=== PATIENT | male | born 1995 | race American Indian/Alaskan Native ===

== ENCOUNTER 2018-06-28 00:30 | Emergency (ER) | payer OTHER, MEDICAID ==
[2018-06-28 00:42] VITALS: BP 120/77
[2018-06-28] MEDS ORDERED: NACL 0.9% 1000 ML 1,000 ML IV ONE (00:45)
--- NOTE | 2018-06-28 00:51 | Emergency Department Report ---
ED Alcohol HPI - General Chief Complaint: Alcohol Stated Complaint: ETOH Time Seen by Provider: 06/28/18 00:44 Source: EMS Mode of arrival: Stretcher Limitations: Altered Mental Status, Other - History of Present Illness Initial Comments: Patient is 23 years old male with no significant past medical history. Patient brought to the emergency room via EMS after patient was found unresponsive by his parent outside his house. Patient with a strong smell of alcohol and obvious alcohol intoxication. Patient stated that he fell and hit his head. Patient denied any neck injury. MD Complaint: alcohol intoxication Last Drink: just [employer] Chronic Alcohol Use: No Recent Trauma: No Treatments Prior to Arrival: none - Related Data Previous Rx's Medication Instructions Recorded Last Taken Type Sulfamethoxazole/Trimethoprim 1 each PO BID #10 tablet 10/27/14 Unknown Rx [Bactrim Ds] Allergies Allergy/AdvReac Type Severity Reaction Status Date / Time No Known Allergies Allergy Unverified 10/27/14 00:59 ED Review of Systems ROS: Stated complaint: ETOH Other details as noted in HPI Comment: All other systems reviewed and negative Constitutional: denies: chills, fever Respiratory: denies: cough, orthopnea, shortness of breath, SOB with exertion, SOB at rest Cardiovascular: denies: chest pain, palpitations Gastrointestinal: denies: abdominal pain, nausea, vomiting Musculoskeletal: denies: back pain Neurological: denies: headache, weakness Psychiatric: denies: anxiety, depression, auditory hallucinations, visual hallucinations, homicidal thoughts, suicidal thoughts ED Past Medical Hx - Past Medical History Previous Medical History?: No Hx Psychiatric Treatment: Yes Additional medical history: Pt unable to verify at this time - Surgical History Additional Surgical History: unknown - Social History Smoking Status: Current Every Day Smoker Substance Use Type: Marijuana - Medications Home Medications: Home Medications Medication Instructions Recorded Confirmed Last Taken Type Sulfamethoxazole/Trimethoprim 1 each PO BID #10 tablet 10/27/14 Unknown Rx [Bactrim Ds] ED Physical Exam - General Limitations: Altered Mental Status, Other General appearance: alert, in no apparent distress, appears intoxicated - Head Head exam: Present: atraumatic, normocephalic, normal inspection - Eye Eye exam: Present: normal appearance, PERRL - ENT ENT exam: Present: normal exam, normal orophraynx, mucous membranes moist - Neck Neck exam: Present: normal inspection, full ROM. Absent: tenderness, meningismus, lymphadenopathy, thyromegaly - Respiratory Respiratory exam: Present: normal lung sounds bilaterally. Absent: respiratory distress, wheezes, rales, rhonchi, stridor, chest wall tenderness, accessory muscle use, decreased breath sounds, prolonged expiratory - Cardiovascular Cardiovascular Exam: Present: regular rate, normal rhythm, normal heart sounds - GI/Abdominal GI/Abdominal exam: Present: soft, normal bowel sounds. Absent: distended, te nderness, guarding, rebound, rigid, organomegaly, mass, bruit, pulsatile mass, hernia - Extremities Exam Extremities exam: Present: normal inspection, full ROM, normal capillary refill - Back Exam Back exam: Present: normal inspection, full ROM. Absent: tenderness, CVA tenderness (R), CVA tenderness (L), muscle spasm, paraspinal tenderness, vertebral tenderness - Neurological Exam Neurological exam: Present: alert, oriented X3, CN II-XII intact, reflexes normal - Skin Skin exam: Present: warm, intact, normal color ED Course Vital Signs 06/28/18 06/28/18 00:41 00:42 Pulse Rate 63 Respiratory 14 14 Rate Blood Pressure 120/77 [Left] O2 Sat by Pulse 99 99 Oximetry ED Medical Decision Making - Lab Data Result diagrams: 06/28/18 01:12 06/28/18 01:12 - Radiology Data Radiology results: report reviewed Referring Physician: JOJO REEVES Patient Name: VALERIE SINGH Date of : 1995 Sex: Male Report Date: 2018-06-28 Report Status: [place] [address] Cat Scan Report Signed Patient: VALERIE SINGH MR#: [id number] : 1995 Acct:[id number] Age/Sex: 23 / M ADM Date: 06/28/18 Loc: ED Attending Dr: Ordering Physician: JOJO REEVES Date of Service: 06/28/18 Procedure(s): CT head/brain wo con Accession Number(s): [id number] cc: JOJO REEVES PROCEDURE: CT HEAD/BRAIN WO CON TECHNIQUE: Routine axial imaging was obtained of the brain without IV contrast. HISTORY: head injury COMPARISONS: None FINDINGS: The ventricular system is appropriate in size and is symmetric. There is no evidence of acute stroke or hemorrhage. The sinuses reveal a 5 mm polyp in the left maxillary sinus. The mastoid air cells are well pneumatized. The calvarium appears intact. IMPRESSION: No acute intracranial process.. This document is electronically signed by Bethel Burgess MD., June 28 2018 02:22:03 AM ET Transcribed By: RB Dictated By: BETHEL BURGESS MD Electronically Authenticated By: BETHEL BURGESS MD Signed Date/Time: 06/28/18223 DD/ 6 TD/TT: 06/28/18206 - Medical Decision Making Patient is 23 years old male with no significant past medical history. Patient brought to the emergency room via EMS after patient was found unresponsive by his parent outside his house. Patient with a strong smell of alcohol and obvious alcohol intoxication. Patient stated that he fell and hit his head. Patient denied any neck injury. Patient now is awake, alert and oriented 3 in no acute distress. His labs reviewed and is negative except for slightly increased alcohol of 0.09. Patient will be discharged home with his family. I counseled patient about alcohol abuse and the dangers of intoxication. I advised the patient to follow up with his primary care physician in the next 2-3 days and to return to the ER if he develop any new symptoms. Critical care attestation.: If time is entered above; I have spent that time in minutes in the direct care of this critically ill patient, excluding procedure time. ED Disposition Clinical Impression: Alcohol intoxication Disposition: DC-01 TO HOME OR SELFCARE Is pt being admited?: No Condition: Stable Instructions: Alcohol Intoxication (ED) Referrals: PRIMARY CARE, [Primary Care Provider] - 3-5 Days
[2018-06-28 01:28] LABS: Amphetamine Screen,Urine PRESUMPTIVE NEGATIVE; Benzodiazepines Screen,Urine PRESUMPTIVE NEGATIVE; Cannabinoid Screen,Urine PRESUMPTIVE NEGATIVE; Cocaine Screen,Urine PRESUMPTIVE NEGATIVE; Methadone Screen,Urine PRESUMPTIVE NEGATIVE; Opiate Screen,Urine PRESUMPTIVE NEGATIVE
[2018-06-28 01:37] LABS: Eosinophils % (Auto) 2.2 % (0.0-4.3); Hematocrit 45.7 % (35.5-45.6); Hemoglobin 15.1 gm/dl (11.8-15.2); Lymphocytes % (Auto) 28.1 % (13.4-35.0); Mean Corpuscular HGB Conc 33 % (32-34); Mean Corpuscular Volume 83 fl (84-94); Monocytes % (Auto) 5.6 % (0.0-7.3); Platelet Count 234 K/mm3 (140-440); Red Cell Distribution Width 14.1 % (13.2-15.2)
[2018-06-28 01:38] LABS: Basophils # (Auto) 0.1 K/mm3 (0.0-0.1); Basophils % (Auto) 0.9 % (0.0-1.8); Eosinophils # (Auto) 0.2 K/mm3 (0.0-0.4); Lymphocytes # (Auto) 2.1 K/mm3 (1.2-5.4); Monocytes # (Auto) 0.4 K/mm3 (0.0-0.8)
[2018-06-28 02:03] LABS: Bilirubin,Urine Negative (Negative); Blood,Urine Negative (Negative); Color,Urine Yellow (Yellow)
[2018-06-28 02:04] LABS: Protein,Urine <15 mg/dL mg/dL (Negative); Urobilinogen,Urine 0.2 mg/dL (<2.0)
[2018-06-28 02:11] LABS: BUN/Creatinine Ratio 11; Blood Urea Nitrogen 9 mg/dL (9-20); Calcium 8.9 mg/dL (8.4-10.2); Hemolysis Index 4
--- NOTE | 2018-06-28 02:24 | Cat Scan Report ---
PROCEDURE: CT HEAD/BRAIN WO CON TECHNIQUE: Routine axial imaging was obtained of the brain without IV contrast. HISTORY: head injury COMPARISONS: None FINDINGS: The ventricular system is appropriate in size and is symmetric. There is no evidence of acute stroke or hemorrhage. The sinuses reveal a 5 mm polyp in the left maxillary sinus. The mastoid air cells are well pneumatized. The calvarium appears intact. IMPRESSION: No acute intracranial process.. This document is electronically signed by Bethel Burgess MD., June 28 2018 02:22:03 AM ET
== END 2018-06-28 03:03 | disposition home or self-care (01) ==
LOC: ED 00:30
DX: F10.120 Alcohol abuse with intoxication, uncomplicated (principal); F17.200 Nicotine dependence, unspecified, uncomplicated; R51 Headache
CPT/HCPCS: 36415; 70450; 80048; 80307; 81001; 85025; 99284; G0480; J7030; 80320

== ENCOUNTER 2018-07-01 21:50 | Emergency (ER) | payer OTHER, MEDICAID ==
--- NOTE | 2018-07-02 01:28 | Emergency Department Report ---
ED General Adult HPI - General Chief complaint: Headache Stated complaint: HEADACHE Source: patient Mode of arrival: Ambulatory Limitations: No Limitations - History of Present Illness Initial comments: Pt is a 23 yo male who presents to the ED with c/o an intermittent, left sided CRUZ for the last three days. The patient states he has felt light-headed but no syncope. Pt denies any N/V, numbness, weakness, or tingling. Pt was evaluated in the ED on 06/28/18 for ETOH intoxication and falling and hitting his head. CT of the head revealed no acute abnormality. Pt states he has just felt aching since then. He also has right hand pain over the last couple of days. He has a small abrasion to the right hand. The patient states he believes he fell onto it on 06/28/18. He denies any new injury, fall, trauma, or LOC. Pt denies any ETOH or drug use since 06/28/18. Severity scale (0 -10): 5 - Related Data Previous Rx's Medication Instructions Recorded Last Taken Type Sulfamethoxazole/Trimethoprim 1 each PO BID #10 tablet 10/27/14 Unknown Rx [Bactrim Ds] Allergies Allergy/AdvReac Type Severity Reaction Status Date / Time No Known Allergies Allergy Unverified 10/27/14 00:59 ED Review of Systems ROS: Stated complaint: HEADACHE Other details as noted in HPI Comment: All other systems reviewed and negative ED Past Medical Hx - Past Medical History Previous Medical History?: Yes Hx Psychiatric Treatment: Yes Additional medical history: Pt unable to verify at this time - Surgical History Past Surgical History?: No Additional Surgical History: unknown - Social History Smoking Status: Never Smoker Substance Use Type: None - Medications Home Medications: Home Medications Medication Instructions Recorded Confirmed Last Taken Type Sulfamethoxazole/Trimethoprim 1 each PO BID #10 tablet 10/27/14 Unknown Rx [Bactrim Ds] ED Physical Exam - General Limitations: No Limitations General appearance: alert, in no apparent distress - Head Head exam: Present: atraumatic, normocephalic - Eye Eye exam: Present: PERRL, EOMI - ENT ENT exam: Present: mucous membranes moist - Neck Neck exam: Present: normal inspection. Absent: tenderness - Respiratory Respiratory exam: Present: normal lung sounds bilaterally. Absent: respiratory distress, wheezes, rales, rhonchi, stridor, chest wall tenderness, accessory muscle use, decreased breath sounds, prolonged expiratory - Cardiovascular Cardiovascular Exam: Present: regular rate, normal rhythm, normal heart sounds. Absent: systolic murmur, rubs, gallop - GI/Abdominal GI/Abdominal exam: Present: soft, normal bowel sounds. Absent: distended, tenderness, guarding, rebound, rigid - Extremities Exam Extremities exam: Present: other (mild TTP of the dorsum of the right hand, small abrasion to the right middle finger, neurovascularly intact) - Neurological Exam Neurological exam: Present: alert, oriented X3, normal gait, other (equal strength in the BLE, BUE, equal shrug of the shoulders, no focal neuro deficit). Absent: motor sensory deficit - Psychiatric Psychiatric exam: Present: normal affect, normal mood - Skin Skin exam: Present: warm, dry ED Course Vital Signs 07/01/18 22:01 Temperature 99.1 F Pulse Rate 74 Respiratory 18 Rate Blood Pressure 113/43 O2 Sat by Pulse 97 Oximetry ED Medical Decision Making - Radiology Data Radiology results: report reviewed, image reviewed XR right hand: no acute process - Medical Decision Making Pt is a 26 yo male who presents to the ED with c/o a CRUZ since 06/28/18. He was evaluated on 06/28/18 for ETOH and a fall, CT head was normal. Pt states his head has been aching. He denies any neuro sx, N/V, sensitivity to lights. Exam is completely benign. Has had no further fall, injury, trauma, LOC.Will refer pt to neurology if continues to have HAs to r/o post concussive syndrome. Pt also c/o right hand pain since 06/28/18. XR of the right hand is normal. Advised pt to follow up with PCP in the next 2-3 days. May use motrin/tylenol for pain and ice. Dr. Arrington evaluated and physically examined pt in fast track room and agrees with XR of the hand and if normal then discharge home. Critical care attestation.: If time is entered above; I have spent that time in minutes in the direct care of this critically ill patient, excluding procedure time. ED Disposition Clinical Impression: Right hand pain Headache Qualifiers: Headache type: unspecified Headache chronicity pattern: acute headache Intractability: not intractable Qualified Code(s): R51 - Headache Disposition: DC-01 TO HOME OR SELFCARE Is pt being admited?: No Does the pt Need Aspirin: No Condition: Stable Instructions: Acute Headache (ED), Hand Sprain (ED) Additional Instructions: Follow up with primary care doctor in the next 2-3 days. Follow up with neurology if continue to have headaches. Return to the emergency room if any new or worsening symptoms. Referrals: PRIMARY CARE, [Primary Care Provider] - 3-5 Days AAMIR GARCÍA MD [Referring] - 3-5 Days Time of Disposition: 03:50 Print Language: EGYPTIAN
--- NOTE | 2018-07-02 03:44 | XRay Report ---
PROCEDURE: RIGHT HAND, 2 VIEWS TECHNIQUE: RIGHT hand radiographs, AP and lateral views. CPT 14923-QJ HISTORY: Trauma COMPARISONS: None . FINDINGS: Fracture (s) and/or Dislocation(s): None . Alignment: Normal . Joint space(s): Normal . Soft tissues: Normal . Bone mineralization: Normal . Foreign bodies: None . IMPRESSION: Normal Examination . This document is electronically signed by Shelton Ferreira MD., July 02 2018 03:42:08 AM ET
[2018-07-02 04:50] VITALS: BP 105/53
== END 2018-07-02 04:30 | disposition home or self-care (01) ==
LOC: ED 21:50
DX: S60.412A Abrasion of right middle finger, initial encounter (principal); R51 Headache; W18.39XA Other fall on same level, initial encounter; Y93.89 Activity, other specified; Y92.89 Other specified places as the place of occurrence of the external cause; Y99.8 Other external cause status
CPT/HCPCS: 99283

== ENCOUNTER 2019-03-15 23:30 | Emergency (ER) | payer OTHER, MEDICAID ==
[2019-03-16 00:58] LABS: Bilirubin,Urine NEG (Negative); Blood,Urine NEG (Negative); Color,Urine Yellow (Yellow); Mucus,Urine FEW /HPF; Protein,Urine <15 mg/dL mg/dL (Negative); Urobilinogen,Urine < 2.0 mg/dL (<2.0)
[2019-03-16 01:05] LABS: Amphetamine Screen,Urine PRESUMPTIVE NEGATIVE; Benzodiazepines Screen,Urine PRESUMPTIVE NEGATIVE; Cannabinoid Screen,Urine PRESUMPTIVE NEGATIVE; Cocaine Screen,Urine PRESUMPTIVE NEGATIVE; Methadone Screen,Urine PRESUMPTIVE NEGATIVE; Opiate Screen,Urine PRESUMPTIVE NEGATIVE
[2019-03-16 01:07] LABS: Basophils # (Auto) 0.1 K/mm3 (0.0-0.1); Basophils % (Auto) 1.3 % (0.0-1.8); Eosinophils # (Auto) 0.3 K/mm3 (0.0-0.4); Eosinophils % (Auto) 4.5 % (0.0-4.3); Hematocrit 46.4 % (35.5-45.6); Hemoglobin 15.2 gm/dl (11.8-15.2); Lymphocytes # (Auto) 2.1 K/mm3 (1.2-5.4); Lymphocytes % (Auto) 34.8 % (13.4-35.0); Mean Corpuscular HGB Conc 33 % (32-34); Mean Corpuscular Volume 82 fl (84-94); Monocytes # (Auto) 0.4 K/mm3 (0.0-0.8); Monocytes % (Auto) 7.4 % (0.0-7.3); Platelet Count 223 K/mm3 (140-440); Red Blood Count 5.67 M/mm3 (3.65-5.03); Red Cell Distribution Width 13.1 % (13.2-15.2)
[2019-03-16 01:29] LABS: BUN/Creatinine Ratio 16; Blood Urea Nitrogen 16 mg/dL (9-20); Calcium 9.4 mg/dL (8.4-10.2); Hemolysis Index 11
--- NOTE | 2019-03-16 02:19 | Emergency Department Report ---
ED Psych HPI - General Chief Complaint: Psych Stated Complaint: MENTAL HEALTH Time Seen by Provider: 03/16/19 00:20 Source: patient Mode of arrival: Ambulatory Limitations: No Limitations - History of Present Illness Initial Comments: 24-year-old male with a psychiatric history presents to the hospital because he became angry after a fight with his girlfriend via telephone. Patient came here because of his feelings. He denies any homicidal or suicidal ideation. He also denies auditory or visual hallucinations. He thinks his previous psychiatric diagnosis is anxiety he has been off meds for a while. He denies any physical complaints. - Related Data Previous Rx's Medication Instructions Recorded Last Taken Type Sulfamethoxazole/Trimethoprim 1 each PO BID #10 tablet 10/27/14 Unknown Rx [Bactrim Ds] Allergies Allergy/AdvReac Type Severity Reaction Status Date / Time No Known Allergies Allergy Unverified 10/27/14 00:59 ED Review of Systems ROS: Stated complaint: MENTAL HEALTH Other details as noted in HPI Comment: All other systems reviewed and negative ED Past Medical Hx - Past Medical History Previous Medical History?: Yes Hx Psychiatric Treatment: Yes Additional medical history: Pt unable to verify at this time - Surgical History Past Surgical History?: No Additional Surgical History: unknown - Social History Smoking Status: Current Every Day Smoker Substance Use Type: None - Medications Home Medications: Home Medications Medication Instructions Recorded Confirmed Last Taken Type Sulfamethoxazole/Trimethoprim 1 each PO BID #10 tablet 10/27/14 03/16/19 Unknown Rx [Bactrim Ds] ED Physical Exam - General Limitations: No Limitations - Other Other exam information: General: No acute distress Head: Atraumatic Eyes: normal appearance ENT: Moist mucous membranes Neck: Normal appearance, no midline tenderness Chest: Clear to auscultation bilaterally CV: Regular rate and rhythm Abdomen: Soft, normal bowel sounds, nontender, nondistended, no rebound or guarding Back: Normal inspection Extremity: Normal inspection infection, full range of motion Neuro: Alert O x 3, no facial asymmetry, speech clear, no gross motor sensory deficit Psych: Appropriate behavior Skin: No rash ED Course Vital Signs 03/15/19 03/16/19 23:44 01:29 Temperature 98.4 F 99.1 F Pulse Rate 72 98 H Respiratory 20 18 Rate Blood Pressure 119/78 Blood Pressure 114/77 [Left] O2 Sat by Pulse 100 98 Oximetry ED Medical Decision Making - Lab Data Result diagrams: 03/15/19 23:54 03/15/19 23:54 Lab Results 03/15/19 03/15/19 03/15/19 Range/Units 23:48 23:54 23:54 WBC (4.5-11.0) K/mm3 RBC (3.65-5.03) M/mm3 Hgb (11.8-15.2) gm/dl Hct (35.5-45.6) % MCV (84-94) fl MCH (28-32) pg MCHC (32-34) % RDW (13.2-15.2) % Plt Count (140-440) K/mm3 Lymph % (Auto) (13.4-35.0) % Roberts % (Auto) (0.0-7.3) % Eos % (Auto) (0.0-4.3) % Baso % (Auto) (0.0-1.8) % Lymph # (1.2-5.4) K/mm3 Roberts # (0.0-0.8) K/mm3 Eos # (0.0-0.4) K/mm3 Baso # (0.0-0.1) K/mm3 Seg Neutrophils % (40.0-70.0) % Seg Neutrophils # (1.8-7.7) K/mm3 Sodium (137-145) mmol/L Potassium (3.6-5.0) mmol/L Chloride (98-107) mmol/L Carbon Dioxide (22-30) mmol/L Anion Gap mmol/L BUN (9-20) mg/dL Creatinine (0.8-1.5) mg/dL Estimated GFR ml/min BUN/Creatinine Ratio % Glucose (75-100) mg/dL Calcium (8.4-10.2) mg/dL Urine Color (Yellow) Urine Turbidity (Clear) Urine pH (5.0-7.0) Ur Specific Shafter (1.003-1.030) Urine Protein (Negative) mg/dL Urine Glucose (UA) (Negative) mg/dL Urine Ketones (Negative) mg/dL Urine Blood (Negative) Urine Nitrite (Negative) Urine Bilirubin (Negative) Urine Urobilinogen (<2.0) mg/dL Ur Leukocyte Esterase (Negative) Urine WBC (Auto) (0.0-6.0) /HPF Urine RBC (Auto) (0.0-6.0) /HPF U Epithel Cells (Auto) (0-13.0) /HPF Urine Mucus /HPF Salicylates < 0.3 L (2.8-20.0) mg/dL Urine Opiates Screen Presumptive negative Urine Methadone Screen Presumptive negative Acetaminophen < 5.0 L (10.0-30.0) ug/mL Ur Barbiturates Screen Presumptive negative Ur Phencyclidine Scrn Presumptive negative Ur Amphetamines Screen Presumptive negative U Benzodiazepines Scrn Presumptive negative Urine Cocaine Screen Presumptive negative U Marijuana (THC) Screen Presumptive negative Drugs of Abuse Note Disclamer Plasma/Serum Alcohol (0-0.07) % 03/15/19 03/15/19 03/15/19 Range/Units 23:54 23:54 23:54 WBC 5.9 (4.5-11.0) K/mm3 RBC 5.67 H (3.65-5.03) M/mm3 Hgb 15.2 (11.8-15.2) gm/dl Hct 46.4 H (35.5-45.6) % MCV 82 L (84-94) fl MCH 27 L (28-32) pg MCHC 33 (32-34) % RDW 13.1 L (13.2-15.2) % Plt Count 223 (140-440) K/mm3 Lymph % (Auto) 34.8 (13.4-35.0) % Roberts % (Auto) 7.4 H (0.0-7.3) % Eos % (Auto) 4.5 H (0.0-4.3) % Baso % (Auto) 1.3 (0.0-1.8) % Lymph # 2.1 (1.2-5.4) K/mm3 Roberts # 0.4 (0.0-0.8) K/mm3 Eos # 0.3 (0.0-0.4) K/mm3 Baso # 0.1 (0.0-0.1) K/mm3 Seg Neutrophils % 52.0 (40.0-70.0) % Seg Neutrophils # 3.1 (1.8-7.7) K/mm3 Sodium 143 (137-145) mmol/L Potassium 4.2 (3.6-5.0) mmol/L Chloride 102.0 (98-107) mmol/L Carbon Dioxide 25 (22-30) mmol/L Anion Gap 20 mmol/L BUN 16 (9-20) mg/dL Creatinine 1.0 (0.8-1.5) mg/dL Estimated GFR > 60 ml/min BUN/Creatinine Ratio 16 % Glucose 85 (75-100) mg/dL Calcium 9.4 (8.4-10.2) mg/dL Urine Color (Yellow) Urine Turbidity (Clear) Urine pH (5.0-7.0) Ur Specific Shafter (1.003-1.030) Urine Protein (Negative) mg/dL Urine Glucose (UA) (Negative) mg/dL Urine Ketones (Negative) mg/dL Urine Blood (Negative) Urine Nitrite (Negative) Urine Bilirubin (Negative) Urine Urobilinogen (<2.0) mg/dL Ur Leukocyte Esterase (Negative) Urine WBC (Auto) (0.0-6.0) /HPF Urine RBC (Auto) (0.0-6.0) /HPF U Epithel Cells (Auto) (0-13.0) /HPF Urine Mucus /HPF Salicylates (2.8-20.0) mg/dL Urine Opiates Screen Urine Methadone Screen Acetaminophen (10.0-30.0) ug/mL Ur Barbiturates Screen Ur Phencyclidine Scrn Ur Amphetamines Screen U Benzodiazepines Scrn Urine Cocaine Screen U Marijuana (THC) Screen Drugs of Abuse Note Plasma/Serum Alcohol < 0.01 (0-0.07) % 03/15/19 Range/Units 23:57 WBC (4.5-11.0) K/mm3 RBC (3.65-5.03) M/mm3 Hgb (11.8-15.2) gm/dl Hct (35.5-45.6) % MCV (84-94) fl MCH (28-32) pg MCHC (32-34) % RDW (13.2-15.2) % Plt Count (140-440) K/mm3 Lymph % (Auto) (13.4-35.0) % Roberts % (Auto) (0.0-7.3) % Eos % (Auto) (0.0-4.3) % Baso % (Auto) (0.0-1.8) % Lymph # (1.2-5.4) K/mm3 Roberts # (0.0-0.8) K/mm3 Eos # (0.0-0.4) K/mm3 Baso # (0.0-0.1) K/mm3 Seg Neutrophils % (40.0-70.0) % Seg Neutrophils # (1.8-7.7) K/mm3 Sodium (137-145) mmol/L Potassium (3.6-5.0) mmol/L Chloride (98-107) mmol/L Carbon Dioxide (22-30) mmol/L Anion Gap mmol/L BUN (9-20) mg/dL Creatinine (0.8-1.5) mg/dL Estimated GFR ml/min BUN/Creatinine Ratio % Glucose (75-100) mg/dL Calcium (8.4-10.2) mg/dL Urine Color Yellow (Yellow) Urine Turbidity Clear (Clear) Urine pH 5.0 (5.0-7.0) Ur Specific Shafter 1.021 (1.003-1.030) Urine Protein <15 mg/dl (Negative) mg/dL Urine Glucose (UA) Neg (Negative) mg/dL Urine Ketones Neg (Negative) mg/dL Urine Blood Neg (Negative) Urine Nitrite Neg (Negative) Urine Bilirubin Neg (Negative) Urine Urobilinogen < 2.0 (<2.0) mg/dL Ur Leukocyte Esterase Neg (Negative) Urine WBC (Auto) 1.0 (0.0-6.0) /HPF Urine RBC (Auto) 1.0 (0.0-6.0) /HPF U Epithel Cells (Auto) 1.0 (0-13.0) /HPF Urine Mucus Few /HPF Salicylates (2.8-20.0) mg/dL Urine Opiates Screen Urine Methadone Screen Acetaminophen (10.0-30.0) ug/mL Ur Barbiturates Screen Ur Phencyclidine Scrn Ur Amphetamines Screen U Benzodiazepines Scrn Urine Cocaine Screen U Marijuana (THC) Screen Drugs of Abuse Note Plasma/Serum Alcohol (0-0.07) % - Medical Decision Making patient came here today because he was very angry after a fight with his girlfriend via telephone. Patient has psychiatric disorder as been noncompliant with his meds. At this time he does not have active psychosis, suicidal, or homicidal ideation is therefore not a candidate for 1013. Patient was evaluated by mental health was in agreement. Patient states he has calmed down since arrival to the ED. He will be discharged outpatient follow-up resources for psych. - Differential Diagnosis anger outbursts, psychosis, SI, HI Critical Care Time: No Critical care attestation.: If time is entered above; I have spent that time in minutes in the direct care of this critically ill patient, excluding procedure time. ED Disposition Clinical Impression: Anger reaction Disposition: DC-01 TO HOME OR SELFCARE Is pt being admited?: No Does the pt Need Aspirin: No Condition: Stable Instructions: Suicide Prevention for Adults (ED) Additional Instructions: Follow-up with your doctor or doctor/clinic provided as well as mental health resources provided. Return if symptoms worsen as indicated by your discharge instructions. Referrals: [facility] [Outside] - 3-5 Days Time of Disposition: 02:43
[2019-03-16 02:58] VITALS: BP 101/63
== END 2019-03-16 04:17 | disposition home or self-care (01) ==
LOC: ED 23:30
DX: R45.4 Irritability and anger (principal); F17.200 Nicotine dependence, unspecified, uncomplicated; Z79.899 Other long term (current) drug therapy
CPT/HCPCS: 36415; 80048; 80307; 80320; 81001; 85025; G0480

== ENCOUNTER 2021-08-09 23:54 | Emergency (ER) | payer OTHER, MEDICAID ==
[2021-08-10 00:18] VITALS: BP 120/80
--- NOTE | 2021-08-10 08:45 | Emergency Department Report ---
- General Chief complaint: Urogenital-Male Stated complaint: MASS IN CHEST Time Seen by Provider: 08/10/21 08:40 Source: patient Mode of arrival: Stretcher Limitations: No Limitations - History of Present Illness Initial comments: Patient is a 26-year-old male that comes to the emergency room complaining of swelling around his right breast. It has been there for months. Denies any nipple discharge. Denies any other symptoms. Has not seen a provider for this in the past. -: Gradual, month(s) Tetanus Up to Date: yes Improves with: none Worsens with: none Context: none Associated symptoms: denies other symptoms Treatments Prior to Arrival: none - Related Data Previous Rx's Medication Instructions Recorded Last Taken Type Sulfamethoxazole/Trimethoprim 1 each PO BID #10 tablet 10/27/14 Unknown Rx [Bactrim Ds] Allergies Allergy/AdvReac Type Severity Reaction Status Date / Time No Known Allergies Allergy Unverified 10/27/14 00:59 Abscess Boil HPI - HPI Chief Complaint: Urogenital-Male Stated Complaint: MASS IN CHEST Time Seen by Provider: 08/10/21 08:40 Home Medications: Previous Rx's Medication Instructions Recorded Last Taken Type Sulfamethoxazole/Trimethoprim 1 each PO BID #10 tablet 10/27/14 Unknown Rx [Bactrim Ds] Allergies/Adverse Reactions: Allergies Allergy/AdvReac Type Severity Reaction Status Date / Time No Known Allergies Allergy Unverified 10/27/14 00:59 ED Review of Systems ROS: Stated complaint: MASS IN CHEST Other details as noted in HPI Comment: All other systems reviewed and negative ED Past Medical Hx - Past Medical History Previous Medical History?: Yes Hx Psychiatric Treatment: Yes Additional medical history: Pt unable to verify at this time - Surgical History Past Surgical History?: No Additional Surgical History: unknown - Family History Family history: no significant - Social History Smoking Status: Current Every Day Smoker Substance Use Type: Marijuana - Medications Home Medications: Home Medications Medication Instructions Recorded Confirmed Last Taken Type Sulfamethoxazole/Trimethoprim 1 each PO BID #10 tablet 10/27/14 03/16/19 Unknown Rx [Bactrim Ds] ED Physical Exam - General Limitations: No Limitations General appearance: alert, in no apparent distress - Head Head exam: Present: atraumatic, normocephalic - Eye Eye exam: Present: normal appearance - ENT ENT exam: Present: mucous membranes moist - Neck Neck exam: Present: normal inspection - Respiratory Respiratory exam: Present: normal lung sounds bilaterally. Absent: respiratory distress - Cardiovascular Cardiovascular Exam: Present: regular rate, normal rhythm. Absent: systolic murmur, diastolic murmur, rubs, gallop - GI/Abdominal GI/Abdominal exam: Present: soft, normal bowel sounds - Rectal Rectal exam: Present: deferred - Extremities Exam Extremities exam: Present: normal inspection - Back Exam Back exam: Present: normal inspection - Neurological Exam Neurological exam: Present: alert, oriented X3 - Psychiatric Psychiatric exam: Present: normal affect, normal mood - Skin Skin exam: Present: warm, dry, intact, normal color, other (gynecomastia right breast). Absent: rash ED Course Vital Signs 08/10/21 08/10/21 00:13 09:04 Temperature 98 F 98 F Pulse Rate 78 78 Respiratory 18 16 Rate Blood Pressure 120/80 O2 Sat by Pulse 100 99 Oximetry ED Medical Decision Making - Medical Decision Making Patient has what appears to be gynecomastia of the right breast. I explained to him that this is nothing that the emergency room would treat. Patient being discharged home with discharge plan of care including diet, activity, medications and follow-up. I have given him referrals. He verbalizes understanding. Vital Signs 08/10/21 08/10/21 00:13 09:04 Temperature 98 F 98 F Pulse Rate 78 78 Respiratory 18 16 Rate Blood Pressure 120/80 O2 Sat by Pulse 100 99 Oximetry - Differential Diagnosis Gynecomastia versus soft tissue mass Critical care attestation.: If time is entered above; I have spent that time in minutes in the direct care of this critically ill patient, excluding procedure time. ED Disposition Clinical Impression: Gynecomastia Disposition: LEFT WITHOUT BEING SEEN Is pt being admited?: No Does the pt Need Aspirin: No Condition: Stable Instructions: Gynecomastia, Adult Additional Instructions: FOLLOW UP WITH THE BELOW DOCTORS WE DISCUSSED Referrals: MARTIN DE JESUS MD [Staff Physician] - 3-5 Days ANNIKA ANGELES MD [Staff Physician] - 3-5 Days Time of Disposition: 08:45
== END 2021-08-10 09:04 | disposition left against medical advice (07) ==
LOC: ED 23:54
DX: N62 Hypertrophy of breast (principal); F17.200 Nicotine dependence, unspecified, uncomplicated; F12.90 Cannabis use, unspecified, uncomplicated
CPT/HCPCS: 99283